=== PATIENT | male | born 1990 ===

== ENCOUNTER 2018-01-03 09:48 | Emergency (ER) | payer MEDICAID, OTHER ==
[2018-01-03 09:48] VITALS: BMI 36.9
[2018-01-03 10:16] VITALS: RESP 20; TEMP 98
[2018-01-03] MEDS ORDERED: DiphenhydrAMINE 50 mg/ml Inj IVP STA (10:43)
[2018-01-03] MEDS ORDERED: cefTRIAXone 2 GM IN NS 2 GM/100 ML BAG IVPB STA (10:43)
--- NOTE | 2018-01-03 10:49 | ED PDOC ---
Arrival/HPI - General Chief Complaint: Abnormal Skin Integrity Time Seen by Provider: 01/03/18 10:42 Historian: Patient - History of Present Illness Narrative History of Present Illness (Text): 01/03/18 10:45 27 yo male w/PMHx of sz ds, come in for evaluation of diffuse skin itchy rash gradually developed for past 6 days. Pt reports, " after I had vodka noted some mild itchiness to stomach". Otherwise, pt denies fever, chills, recent abx use or illness, headache, dizziness, throat tightness or swelling, drooling, dyspnea , wheezing, cough, CP, SOB, abd. pain, V/D, UTI sx, denies previous hx of allergy to food or medication. denies recent travel or known sick contact. Ambulate to Ed for evaluation, not in nay apparent distress. Past Medical History - Provider Review Nursing Documentation Reviewed: Yes - Travel History Have you recently traveled outside [place] w/in the past 3 mons?: No - Past History Past History: No Previous - Infectious Disease Hx of Infectious Diseases: None - Tetanus Immunization Tetanus Immunization: Unknown - Cardiac Hx Cardiac Disorders: No - Pulmonary Hx Respiratory Disorders: No - Neurological Hx Neurological Disorder: No Other/Comment: seizere like episode - HEENT Hx HEENT Disorder: No - Renal Hx Renal Disorder: No - Endocrine/Metabolic Hx Endocrine Disorders: No - Hematological/Oncological Hx Blood Disorders: No - Integumentary Hx Dermatological Disorder: No - Musculoskeletal/Rheumatological Hx Musculoskeletal Disorders: No Hx Falls: No - Gastrointestinal Hx Gastrointestinal Disorders: No - Genitourinary/Gynecological Hx Genitourinary Disorders: No - Psychiatric Hx Psychophysiologic Disorder: No Hx Substance Use: No - Anesthesia Hx Anesthesia: No - Suicidal Assessment Feels Threatened In Home Enviroment: No Family/Social History - Physician Review Nursing Documentation Reviewed: Yes Family/Social History: No Known Family HX Smoking Status: Current Some Days Smoker Hx Alcohol Use: Yes Hx Substance Use: No Hx Substance Use Treatment: No Allergies/Home Meds Allergies/Adverse Reactions: Allergies No Known Allergies Allergy (Verified 01/22/15 02:07) Review of Systems - Physician Review All systems were reviewed & negative as marked: Yes - Review of Systems Constitutional: Normal. absent: Fatigue Eyes: Normal. absent: Vision Changes ENT: Normal. absent: Voice Changes, Sore Throat Respiratory: Normal. absent: SOB, Cough, Sputum, Wheezing Cardiovascular: Normal Gastrointestinal: absent: Abdominal Pain, Diarrhea, Nausea, Vomiting Genitourinary Male: Normal Musculoskeletal: Normal Skin: Rash Neurological: Normal Endocrine: Normal Hemo/Lymphatic: Normal Psychiatric: Normal Physical Exam Vital Signs Reviewed: Yes Vital Signs Temp Pulse Resp BP Pulse Ox 01/03/18 10:11 98 F 98 H 20 128/88 99 Temperature: Afebrile Blood Pressure: Normal Pulse: Regular Respiratory Rate: Normal Appearance: Positive for: Well-Appearing, Non-Toxic, Comfortable Pain Distress: Mild Mental Status: Positive for: Alert and Oriented X 3 - Systems Exam Head: Present: Normocephalic Extroacular Muscles: Present: EOMI Conjunctiva: Present: Normal Ears: Present: NORMAL TM Mouth: Present: Moist Mucous Membranes, Normal Lips. No: Drooling Pharnyx: Present: Other (uvula midline, no edema.). No: ERYTHEMA, EXUDATE, Strider Neck: Present: Trachea Midline. No: JVD, Lymphadenopathy, Bruit Respiratory/Chest: Present: Clear to Auscultation, Good Air Exchange. No: Respiratory Distress, Accessory Muscle Use, Wheezes, Decreased Breath Sounds Cardiovascular: Present: Regular Rate and Rhythm, Normal S1, S2. No: Murmurs Abdomen: No: Tenderness, Distention, Peritoneal Signs, Rebound, Guarding Back: No: CVA Tenderness Upper Extremity: Present: Normal ROM, NORMAL PULSES. No: Cyanosis, Edema Lower Extremity: Present: NORMAL PULSES. No: Edema, CALF TENDERNESS, Swelling Neurological: Present: GCS=15, Speech Normal Skin: Present: Warm, Dry, Rashes (diffuse urticaria to entire body, more pronounce over B/L thihs with skin induration, excoriation, no wheeping.) Psychiatric: Present: Alert, Oriented x 3 Medical Decision Making ED Course and Treatment: 01/03/18 Pt was OBS in ED for 2 hours and remained stable. On re-evaluation, pt is afebrile, hemodynamicaly stable. Non-toxic, tolerate Po well in ED. PulseOx 99% rA ENT: no acute findings, uvula midline, no edema. neck: Supple, (-) JVD Lungs: CTA B/L, BS equal B/L CVS: (+)S1S2, reg. Abd: benign. Neuorlogicaly intact. SKin: mild improvement in generalized urticaria. Blood work review and appears normal. Pt has clinical findings c/w diffuse urticaria r/o allergic reaction, early cellulitis of B/L thighs. Pt advised. ref. to f/u with PMD in 2 days for re-evaluation. return to ED if any worsening or new changes. - Lab Interpretations Lab Results: 01/03/18 10:50 01/03/18 10:50 Lab Results 01/03/18 10:50: Sodium 143, Potassium 3.9, Chloride 107, Carbon Dioxide 26, Anion Gap 14, BUN 12, Creatinine 0.6 L, Est GFR ( Amer) > 60, Est GFR ( Non-Af Amer) > 60, Random Glucose 132 H, Calcium 8.9 01/03/18 10:50: WBC 8.2 D, RBC 5.09, Hgb 14.4, Hct 43.1, MCV 84.7, MCH 28.3, MCHC 33.4, RDW 13.9, Plt Count 210, MPV 10.1, Gran % 67.6, Lymph % (Auto) 20.5 L , [place] % (Auto) 6.8 H, Eos % (Auto) 5.0, Baso % (Auto) 0.1, Gran # 5.55, Lymph # (Auto) 1.7, [place] # (Auto) 0.6, Eos # (Auto) 0.4, Baso # (Auto) 0.01 - Medication Orders Current Medication Orders: Sodium Chloride (Sodium Chloride 0.9%) 1,000 mls @ 999 mls/hr IV .Q1H1M STA Stop: 01/03/18 12:57 Discontinued Medications Diphenhydramine HCl (Benadryl) 50 mg IVP STAT STA Stop: 01/03/18 10:44 Last Admin: 01/03/18 10:55 Dose: 50 mg IVP Administration Document 01/03/18 10:55 SRE (Rec: 01/03/18 11:01 SRE [id number]) Charges for Administration # of IVP Administrations 1 Famotidine (Pepcid) 40 mg IVP STAT STA Stop: 01/03/18 10:44 Last Admin: 01/03/18 11:01 Dose: 40 mg IVP Administration Document 01/03/18 11:01 SRE (Rec: 01/03/18 11:01 SRE [id number]) Charges for Administration # of IVP Administrations 1 Ceftriaxone Sodium (Rocephin 2 Gm Ivpb) 2 gm in 100 mls @ 100 mls/hr IVPB STAT STA PRN Reason: Protocol Stop: 01/03/18 11:42 Last Admin: 01/03/18 11:05 Dose: 100 mls/hr eMAR Start Stop Document 01/03/18 11:05 SRE (Rec: 01/03/18 11:07 SRE [id number]) Intravenous Solution Start Date 01/03/18 Start Time 11:07 End Date 01/03/18 End time 12:10 Total Infusion Time 63 Methylprednisolone (Solu-Medrol) 125 mg IVP STAT STA Stop: 01/03/18 10:44 Last Admin: 01/03/18 10:56 Dose: 125 mg IVP Administration Document 01/03/18 10:56 SRE (Rec: 01/03/18 11:00 SRE [id number]) Charges for Administration # of IVP Administrations 1 Disposition/Present on Arrival - Present on Arrival Any Indicators Present on Arrival: No History of DVT/PE: No History of Uncontrolled Diabetes: No Urinary Catheter: No History of Decub. Ulcer: No History Surgical Site Infection Following: None - Disposition Have Diagnosis and Disposition been Completed?: Yes Diagnosis: Urticaria, Cellulitis Disposition: HOME/ ROUTINE Disposition Time: 12:18 Patient Plan: Discharge Condition: STABLE Discharge Instructions (ExitCare): Hives (DC), Food Allergy, Cellulitis (ED) Print Language: KYRGYZ Additional Instructions: AVOID FOOD OR DRINK CAUSE ALLERGY ENCOURAGE FLUIDS TAKE MEDICATION PRESCRIBED FOLLOW UP WITH PMD IN 2-3 DAYS FOR RE-EVALUATION. RETURN TO ED IF ANY WORSENING OR NEW CHANGES. Prescriptions: Amoxicillin/Clavulanate [Augmentin 875 MG-125 MG] 1 tab PO BID #14 tab DiphenhydrAMINE [Benadryl] 25 mg PO BID #10 cap Famotidine [Pepcid] 20 mg PO BID #10 tab predniSONE [predniSONE Tab] 60 mg PO DAILY #12 tab Referrals: Paulo Earl [Primary Care Provider] - Follow up with primary Forms: [employer] ([place] Citizen)
[2018-01-03 10:59] LABS: BASO # 0.01 K/mm3 (0.0-2.0); BASO % 0.1 % (0.0-3.0); EOS # 0.4 (0.0-0.7); GRAN # 5.55 (1.4-6.5); GRAN % 67.6 % (50.0-68.0); HEMOGLOBIN 14.4 g/dL (14.0-18.0); LYMPH # 1.7 (1.2-3.4); LYMPH % 20.5 % (22.0-35.0); MEAN CELL VOLUME 84.7 fl (80.0-105.0); MEAN CORPUSCULAR HEMOGLOBIN 28.3 pg (25.0-35.0); MEAN CORPUSCULAR HGB CONC 33.4 g/dl (31.0-37.0); MEAN PLATELET VOLUME 10.1 fl (7.0-11.0); MONO # 0.6 (0.1-0.6); MONO % 6.8 % (1.0-6.0); RBC 5.09 10^6/uL (3.5-6.1); RED CELL DISTRIBUTION WIDTH 13.9 % (11.5-14.5); WHITE BLOOD COUNT 8.2 10^3/ul (4.5-11.0)
[2018-01-03 11:08] LABS: BLOOD UREA NITROGEN 12 mg/dL (7-21); CALCIUM 8.9 mg/dL (8.4-10.5); GFR AFRICAN-AMERICAN > 60; GFR NON-AFRICAN AMERICAN > 60
[2018-01-03] MEDS ORDERED: Sodium Chloride 0.9% 1,000 ML IV STA (11:57)
[2018-01-03 13:50] LABS: URINE BILIRUBIN NEGATIVE (NEGATIVE); URINE BLOOD NEGATIVE (NEGATIVE); URINE GLUCOSE (UA) NEGATIVE (NEGATIVE); URINE LEUKOCYTE ESTERASE NEGATIVE Leu/uL (NEGATIVE); URINE PROTEIN NEGATIVE mg/dL (<30 mg/dL); URINE UROBILINOGEN 0.2 E.U./dL (<1 E.U./dL)
[2018-01-03 13:52] LABS: URINE APPEARANCE CLEAR (CLEAR); URINE COLOR YELLOW (YELLOW)
[2018-01-03 14:32] VITALS: BP 133/84; PULSE 91; O2SAT 100
== END 2018-01-03 14:30 | disposition home or self-care (01) ==
LOC: ED 09:48
DX: L50.9 Urticaria, unspecified (principal); L03.116 Cellulitis of left lower limb; L03.115 Cellulitis of right lower limb
CPT/HCPCS: 80048; 81003; 85025; 96365; 96375; 99283; J0696; J1200; J2930; J7030